=== PATIENT | male | born 1955 | race Caucasian/White ===

== ENCOUNTER 2020-12-26 19:53 | Inpatient (IN) | payer MEDICAID, MEDICARE ==
[~2020-12-26] VITALS: Ht 185.4 cm; Wt 89.5 kg
[~2020-12-26 19:53] MED LIST: ALBUAER3 IN; ALPR0.5T PO; ASPI-543 PO; ATEN-60; CYCL10TA6 PO; FLUO20CA19 PO; FLUT110A INH; IBUP800T27 PO; METO-158 PO; PROP60CA34 PO
[2020-12-26] MEDS ORDERED: ALBUTEROL SULF 2.5 MG/0.5ML(0.5%) NEB SOLN HHN STA (20:15)
[2020-12-26] MEDS ORDERED: methylPREDNISolone SOD SUCC 125 MG/2 ML VL IV ONE (20:15)
[2020-12-26] MEDS ORDERED: IPRATROPIUM BROM 0.5 MG/2.5ML INH SOL NEB ONE (20:15)
[2020-12-26] MEDS ORDERED: AZITHROMYCIN 500MG/ 250ML 250 ML IV ONE (20:15)
[2020-12-26 20:50] LABS: Basophils # (auto) 0 10 ^3/uL (0-0.2); Basophils % (auto) 0.4 % (0.0-2.0); Eosinophils # (auto) 0.2 10 ^3/uL (0-0.8); Eosinophils % (auto) 3.1 % (0.0-7.0); Hematocrit 32.2 % (41.0-53.0); Lymphocytes # (auto) 0.8 10 ^3/uL (0.4-5.4); Lymphocytes % (auto) 12.2 % (10.0-50.0); Mean Corpuscular Hemoglobin 31.2 pg (28.0-32.0); Mean Corpuscular Hgb Conc. 34.2 g/dL (32.0-36.0); Mean Corpuscular Volume 91.5 fL (80.0-100.0); Monocytes # (auto) 0.7 10 ^3/uL (0-1.3); Monocytes % (auto) 10.1 % (0.0-12.0); Neutrophils # (auto) 5.1 10 ^3/uL (1.6-8.6); Neutrophils % (auto) 74.2 % (37.0-80.0); Nucleated Red Blood Cells % 0.1 %; Red Blood Cells 3.51 10^6/uL (4.5-5.90); Red Cell Distribution Width 13.8 % (11.8-14.3); White Blood Cell 6.9 10^3/uL (4.4-10.8)
[2020-12-26 21:10] LABS: Albumin 2.8 g/dL (3.4-5.0); Anion Gap 9 (5-15); BUN/Creatinine Ratio 14.8; Blood Urea Nitrogen 12 mg/dL (7-18); Calcium 8.7 mg/dL (8.5-10.1); Carbon Dioxide 24 mmol/L (21-32); Chloride 104 mmol/L (98-107); GFR African American 123 mL/min; GFR Non-African American 102 mL/min; Glucose 95 mg/dL (74-106); Potassium 4.1 mmol/L (3.5-5.1); Sodium 137 mmol/L (136-145)
[2020-12-26 21:15] LABS: Alanine Aminotransferase 26 U/L (16-61); Alkaline Phosphatase 62 U/L (45-117); Aspartate Aminotransferase 25 U/L (15-37); Bilirubin, Total 0.4 mg/dL (0.2-1.0)
[2020-12-27] MEDS ORDERED: NITROGLYCERIN 0.4 MG SL TAB SL PRN (03:30)
[2020-12-27] MEDS ORDERED: ALBUMIN 25% 50 ML IV ONE (03:30)
[2020-12-27] MEDS ORDERED: ONDANSETRON HCL 4 MG/2 ML VIAL IV PRN (03:30)
[2020-12-27] MEDS ORDERED: MORPHINE SULFATE INJECTION 2 MG/ML SYRG IV PRN (03:30)
[2020-12-27] MEDS ORDERED: ACETAMINOPHEN 325 MG TAB PO PRN (03:30)
[2020-12-27 04:00] LABS: Basophils # (auto) 0 10 ^3/uL (0-0.2); Basophils % (auto) 0.2 % (0.0-2.0); Eosinophils # (auto) 0 10 ^3/uL (0-0.8); Eosinophils % (auto) 0.2 % (0.0-7.0); Hematocrit 33.3 % (41.0-53.0); Hemoglobin 11.5 g/dL (13.5-17.5); Lymphocytes # (auto) 0.4 10 ^3/uL (0.4-5.4); Lymphocytes % (auto) 6.1 % (10.0-50.0); Mean Corpuscular Hemoglobin 31.7 pg (28.0-32.0); Mean Corpuscular Hgb Conc. 34.4 g/dL (32.0-36.0); Mean Corpuscular Volume 92.1 fL (80.0-100.0); Monocytes # (auto) 0.1 10 ^3/uL (0-1.3); Monocytes % (auto) 1.1 % (0.0-12.0); Neutrophils # (auto) 6.6 10 ^3/uL (1.6-8.6); Neutrophils % (auto) 92.4 % (37.0-80.0); Red Blood Cells 3.62 10^6/uL (4.5-5.90); Red Cell Distribution Width 13.9 % (11.8-14.3); White Blood Cell 7.2 10^3/uL (4.4-10.8)
[2020-12-27 04:18] LABS: Albumin 2.9 g/dL (3.4-5.0); BUN/Creatinine Ratio 16.9; Potassium 4.4 mmol/L (3.5-5.1)
[2020-12-27 05:10] LABS: Bilirubin, Total 0.4 mg/dL (0.2-1.0); Total Protein 7.2 g/dL (6.4-8.2)
[2020-12-27] MEDS ORDERED: ALBUTEROL SULF HFA 90MCG INH 200DOSE IN SCH (06:00)
[2020-12-27] MEDS: SODIUM CHLOR 0.9% PF (SALINE LOCK) 10ML VIAL/SYR IV SCH ×3 (06:06→22:09)
[2020-12-27] MEDS: ZINC SULFATE 220mg CAP or TAB PO SCH (11:11)
[2020-12-27] MEDS: ASCORBIC ACID 500 MG TAB PO SCH ×2 (11:11→22:10)
[2020-12-27] MEDS: MULTIPLE VITAMIN TAB PO SCH (11:11)
[2020-12-27] MEDS: FAMOTIDINE (10MG/ML) 2ML VL IV SCH ×2 (11:11→22:09)
[2020-12-27] MEDS: AZITHROMYCIN 500MG/ 250ML 250 ML IV SCH (11:11)
[2020-12-27] MEDS: methylPREDNISolone SOD SUCC 40 MG/ML VL IV SCH ×2 (11:11→22:10)
[2020-12-27] MEDS: ENOXAPARIN SOD 40 MG/0.4 ML SYRINGE SC SCH (11:12)
[2020-12-27] MEDS ORDERED: NICOTINE 21MG/24 HR TOPICAL PATCH TD ONE (15:15)
[2020-12-27] MEDS: HYDROcodone-ACET 5/325MG TAB PO PRN (19:02)
[2020-12-27] MEDS: ALBUTEROL SULF 2.5 MG/0.5ML(0.5%) NEB SOLN NEB PRN (19:14)
[2020-12-27] MEDS: IPRATROPIUM BROM 0.5 MG/2.5ML INH SOL NEB PRN (19:14)
[2020-12-27] MEDS ORDERED: HYDROmorphone HCL 2 MG/ML VL IV ONE (20:30)
[2020-12-27] MEDS: LORazepam 2MG/ML-1ML VIAL IV ONE ×2 (20:37→21:56)
[2020-12-27] MEDS: METOPROLOL TARTRATE 25 MG TAB PO SCH (22:11)
[2020-12-28 04:42] LABS: Albumin 2.9 g/dL (3.4-5.0); Magnesium 2.3 mg/dL (1.6-2.6); Potassium 4.5 mmol/L (3.5-5.1)
[2020-12-28 04:45] LABS: BUN/Creatinine Ratio 26.3; Total Protein 7.1 g/dL (6.4-8.2)
[2020-12-28 04:46] LABS: Basophils # (auto) 0 10 ^3/uL (0-0.2); Basophils % (auto) 0.1 % (0.0-2.0); Eosinophils # (auto) 0 10 ^3/uL (0-0.8); Hematocrit 33.7 % (41.0-53.0); Hemoglobin 11.7 g/dL (13.5-17.5); Lymphocytes # (auto) 0.5 10 ^3/uL (0.4-5.4); Lymphocytes % (auto) 3.7 % (10.0-50.0); Mean Corpuscular Hemoglobin 31.9 pg (28.0-32.0); Mean Corpuscular Hgb Conc. 34.9 g/dL (32.0-36.0); Mean Corpuscular Volume 91.5 fL (80.0-100.0); Monocytes # (auto) 0.2 10 ^3/uL (0-1.3); Monocytes % (auto) 1.8 % (0.0-12.0); Neutrophils # (auto) 13.1 10 ^3/uL (1.6-8.6); Neutrophils % (auto) 94.4 % (37.0-80.0); Red Blood Cells 3.68 10^6/uL (4.5-5.90); Red Cell Distribution Width 13.9 % (11.8-14.3); White Blood Cell 13.9 10^3/uL (4.4-10.8)
[2020-12-28 04:47] LABS: Bilirubin, Total 0.3 mg/dL (0.2-1.0)
[2020-12-28 05:18] LABS: INR 1.18 (0.9-1.15)
[2020-12-28] MEDS: SODIUM CHLOR 0.9% PF (SALINE LOCK) 10ML VIAL/SYR IV SCH ×3 (06:14→21:17)
[2020-12-28] MEDS: FAMOTIDINE (10MG/ML) 2ML VL IV SCH ×2 (09:03→21:17)
[2020-12-28] MEDS: ENOXAPARIN SOD 40 MG/0.4 ML SYRINGE SC SCH (09:03)
[2020-12-28] MEDS: methylPREDNISolone SOD SUCC 40 MG/ML VL IV SCH ×2 (09:03→21:17)
[2020-12-28] MEDS: NICOTINE 21MG/24 HR TOPICAL PATCH TD SCH ×2 (09:04→09:15)
[2020-12-28] MEDS: METOPROLOL TARTRATE 25 MG TAB PO SCH ×2 (09:04→21:29)
[2020-12-28] MEDS: ZINC SULFATE 220mg CAP or TAB PO SCH (09:05)
[2020-12-28] MEDS: ASCORBIC ACID 500 MG TAB PO SCH ×2 (09:05→21:18)
[2020-12-28] MEDS: MULTIPLE VITAMIN TAB PO SCH (09:05)
[2020-12-28] MEDS: AZITHROMYCIN 500MG/ 250ML 250 ML IV SCH (09:16)
[2020-12-28] MEDS ORDERED: LORazepam 0.5 MG TAB ONE (15:52)
[2020-12-28] MEDS: HYDROcodone-ACET 5/325MG TAB PO PRN (19:04)
[2020-12-28] MEDS: LORazepam 0.5 MG TAB PO SCH (21:18)
[2020-12-28 22:00] VITALS: BP 113/69
[2020-12-29 05:00] VITALS: BP 114/78
[2020-12-29] MEDS: SODIUM CHLOR 0.9% PF (SALINE LOCK) 10ML VIAL/SYR IV SCH ×3 (05:13→21:09)
[2020-12-29] MEDS: LORazepam 0.5 MG TAB PO SCH (06:00)
[2020-12-29 08:00] VITALS: BP 134/69
[2020-12-29] MEDS: ENOXAPARIN SOD 40 MG/0.4 ML SYRINGE SC SCH (10:00)
[2020-12-29] MEDS: MULTIPLE VITAMIN TAB PO SCH (10:03)
[2020-12-29] MEDS: NICOTINE 21MG/24 HR TOPICAL PATCH TD SCH (10:03)
[2020-12-29] MEDS: ZINC SULFATE 220mg CAP or TAB PO SCH (10:03)
[2020-12-29] MEDS: ASCORBIC ACID 500 MG TAB PO SCH ×2 (10:04→21:10)
[2020-12-29] MEDS: METOPROLOL TARTRATE 25 MG TAB PO SCH ×2 (10:04→22:00)
[2020-12-29] MEDS: AZITHROMYCIN 500MG/ 250ML 250 ML IV SCH (10:04)
[2020-12-29] MEDS: methylPREDNISolone SOD SUCC 40 MG/ML VL IV SCH ×2 (10:06→21:09)
[2020-12-29] MEDS: FAMOTIDINE (10MG/ML) 2ML VL IV SCH ×2 (10:06→21:09)
[2020-12-29] MEDS ORDERED: MORPHINE SULFATE 4 MG/ML SYR/VIAL IV PRN (11:15)
[2020-12-29] MEDS: ALBUTEROL SULF 2.5 MG/0.5ML(0.5%) NEB SOLN NEB PRN (12:01)
[2020-12-29] MEDS: IPRATROPIUM BROM 0.5 MG/2.5ML INH SOL NEB PRN (12:01)
[2020-12-29] MEDS ORDERED: RIV20T PO (12:11)
[2020-12-29] MEDS ORDERED: METO-158 PO (12:11)
[2020-12-29] MEDS ORDERED: TAMS0.4C36 PO (12:11)
[2020-12-29] MEDS ORDERED: FOLI1TAB6 PO (12:11)
[2020-12-29] MEDS ORDERED: AMLO-489 PO (12:11)
[2020-12-29] MEDS ORDERED: METH2.5T PO (12:11)
[2020-12-29] MEDS ORDERED: DOCU100T15 PO (12:11)
[2020-12-29] MEDS ORDERED: MORP1TAB14 PO (12:11)
[2020-12-29] MEDS ORDERED: BUSP10TA90 PO (12:11)
[2020-12-29] MEDS ORDERED: OXYB5TAB61 PO (12:11)
[2020-12-29 13:00] VITALS: BP 110/69
[2020-12-29] MEDS: HYDROmorphone HCL 2 MG/ML VL IV PRN ×2 (15:40→23:55)
[2020-12-29 17:00] VITALS: BP 156/97
[2020-12-29] MEDS ORDERED: RIVAROXABAN 20 MG TAB PO SCH (18:00)
[2020-12-29 18:39] VITALS: BP 146/64
[2020-12-29 20:36] VITALS: BP 139/77
[2020-12-29] MEDS: HYDROcodone-ACET 5/325MG TAB PO PRN (20:58)
[2020-12-29] MEDS: LORazepam 0.5 MG TAB PO PRN (20:58)
[2020-12-29] MEDS: FLUoxetine HCL 20 MG CAP PO SCH (21:09)
[2020-12-30] MEDS: LORazepam 0.5 MG TAB PO PRN ×2 (03:46→21:20)
[2020-12-30] MEDS: SODIUM CHLOR 0.9% PF (SALINE LOCK) 10ML VIAL/SYR IV SCH ×3 (04:45→21:21)
[2020-12-30 05:00] VITALS: BP 140/89
[2020-12-30] MEDS: IPRATROPIUM BROM 0.5 MG/2.5ML INH SOL NEB PRN (07:22)
[2020-12-30] MEDS: ALBUTEROL SULF 2.5 MG/0.5ML(0.5%) NEB SOLN NEB PRN (07:22)
[2020-12-30 09:00] VITALS: BP 134/86
[2020-12-30] MEDS: AZITHROMYCIN 500MG/ 250ML 250 ML IV SCH (09:31)
[2020-12-30] MEDS: methylPREDNISolone SOD SUCC 40 MG/ML VL IV SCH ×2 (09:32→21:20)
[2020-12-30] MEDS: HYDROmorphone HCL 2 MG/ML VL IV PRN (09:34)
[2020-12-30] MEDS: FOLIC ACID 1 MG TAB PO SCH (09:38)
[2020-12-30] MEDS: ASCORBIC ACID 500 MG TAB PO SCH ×2 (09:39→21:20)
[2020-12-30] MEDS: METOPROLOL TARTRATE 25 MG TAB PO SCH ×2 (09:39→21:22)
[2020-12-30] MEDS: amLODIPine BESYLATE 5 MG TAB PO SCH (09:39)
[2020-12-30] MEDS: ZINC SULFATE 220mg CAP or TAB PO SCH (09:40)
[2020-12-30] MEDS: ENOXAPARIN SOD 40 MG/0.4 ML SYRINGE SC SCH (09:40)
[2020-12-30] MEDS: MULTIPLE VITAMIN TAB PO SCH (09:40)
[2020-12-30] MEDS: OXYBUTYNIN CHL 5 MG TAB PO SCH (09:40)
[2020-12-30] MEDS: TAMSULOSIN HYDROCHLORIDE 0.4 MG CAP PO SCH (09:40)
[2020-12-30] MEDS: NICOTINE 21MG/24 HR TOPICAL PATCH TD SCH (09:40)
[2020-12-30] MEDS: FLUoxetine HCL 20 MG CAP PO SCH (10:00)
[2020-12-30] MEDS: FAMOTIDINE (10MG/ML) 2ML VL IV SCH ×2 (10:00→21:20)
[2020-12-30 12:09] LABS: Hepatitis B Surface Antibody Positive
[2020-12-30 12:36] LABS: Hepatitis A Total Antibody Positive
[2020-12-30 13:00] VITALS: BP 131/82
[2020-12-30 13:44] LABS: Hepatitis B Surface Antigen Negative (Negative)
[2020-12-30 13:48] LABS: Hepatitis B Core Total AB Positive; Hepatitis C Antibody Positive (Negative)
[2020-12-30] MEDS ORDERED: cefTRIAXone 1GM/50ML D5W 50 ML IV ONE (15:30)
[2020-12-30] MEDS: HYDROcodone-ACET 5/325MG TAB PO PRN ×2 (16:45→21:21)
[2020-12-30 17:00] VITALS: BP 135/81
[2020-12-30] MEDS: RIVAROXABAN 20 MG TAB PO SCH (18:06)
[2020-12-30 19:34] LABS: Amphetamine Screen, Urine NEGATIVE (NEGATIVE); Barbiturate Scree,Urine NEGATIVE (NEGATIVE); Benzodiazephine Screen, Urine NEGATIVE (NEGATIVE); Cannabinoid Screen, Urine POSITIVE (NEGATIVE); Cocaine Screen, Urine NEGATIVE (NEGATIVE); Phencyclidine Screen, Urine NEGATIVE (NEGATIVE)
[2020-12-30 19:41] LABS: Opiate Scree,Urine NEGATIVE (NEGATIVE)
[2020-12-30] MEDS: DOCUSATE SOD 100 MG CAP PO PRN (21:22)
[2020-12-30 22:00] VITALS: BP 136/90
[2020-12-31 05:00] VITALS: BP 136/95
[2020-12-31] MEDS: SODIUM CHLOR 0.9% PF (SALINE LOCK) 10ML VIAL/SYR IV SCH ×3 (05:06→21:24)
[2020-12-31 05:42] LABS: Basophils # (auto) 0 10 ^3/uL (0-0.2); Basophils % (auto) 0.2 % (0.0-2.0); Eosinophils # (auto) 0 10 ^3/uL (0-0.8); Hematocrit 33.6 % (41.0-53.0); Lymphocytes # (auto) 0.7 10 ^3/uL (0.4-5.4); Lymphocytes % (auto) 6.8 % (10.0-50.0); Mean Corpuscular Hemoglobin 31.9 pg (28.0-32.0); Mean Corpuscular Hgb Conc. 35.8 g/dL (32.0-36.0); Monocytes # (auto) 0.8 10 ^3/uL (0-1.3); Monocytes % (auto) 7.4 % (0.0-12.0); Neutrophils # (auto) 8.9 10 ^3/uL (1.6-8.6); Neutrophils % (auto) 85.6 % (37.0-80.0); Red Blood Cells 3.78 10^6/uL (4.5-5.90); Red Cell Distribution Width 13.4 % (11.8-14.3); White Blood Cell 10.4 10^3/uL (4.4-10.8)
[2020-12-31 06:04] LABS: Calcium 8.7 mg/dL (8.5-10.1)
[2020-12-31 08:58] VITALS: BP 127/91
[2020-12-31] MEDS: FAMOTIDINE (10MG/ML) 2ML VL IV SCH ×2 (09:40→21:29)
[2020-12-31] MEDS: methylPREDNISolone SOD SUCC 40 MG/ML VL IV SCH ×2 (09:40→21:29)
[2020-12-31] MEDS: cefTRIAXone 1GM/50ML D5W 50 ML IV SCH (09:40)
[2020-12-31] MEDS: AZITHROMYCIN 500MG/ 250ML 250 ML IV SCH (09:41)
[2020-12-31] MEDS: ZINC SULFATE 220mg CAP or TAB PO SCH (09:42)
[2020-12-31] MEDS: FOLIC ACID 1 MG TAB PO SCH (09:42)
[2020-12-31] MEDS: MULTIPLE VITAMIN TAB PO SCH (09:43)
[2020-12-31] MEDS: amLODIPine BESYLATE 5 MG TAB PO SCH (09:43)
[2020-12-31] MEDS: OXYBUTYNIN CHL 5 MG TAB PO SCH (09:43)
[2020-12-31] MEDS: TAMSULOSIN HYDROCHLORIDE 0.4 MG CAP PO SCH (09:43)
[2020-12-31] MEDS: METOPROLOL TARTRATE 25 MG TAB PO SCH ×2 (09:44→21:46)
[2020-12-31] MEDS: ASCORBIC ACID 500 MG TAB PO SCH ×2 (09:45→21:29)
[2020-12-31] MEDS: FLUoxetine HCL 20 MG CAP PO SCH (09:45)
[2020-12-31] MEDS: NICOTINE 21MG/24 HR TOPICAL PATCH TD SCH (09:46)
[2020-12-31] MEDS: DOCUSATE SOD 100 MG CAP PO PRN (09:47)
[2020-12-31] MEDS: ALBUTEROL SULF 2.5 MG/0.5ML(0.5%) NEB SOLN NEB PRN (11:16)
[2020-12-31] MEDS: IPRATROPIUM BROM 0.5 MG/2.5ML INH SOL NEB PRN (11:16)
[2020-12-31] MEDS: LORazepam 0.5 MG TAB PO PRN ×2 (11:35→23:45)
[2020-12-31] MEDS ORDERED: METHOTREXATE 2.5 MG TAB PO SCH (12:30)
[2020-12-31 12:45] VITALS: BP 136/87
[2020-12-31] MEDS: HYDROcodone-ACET 5/325MG TAB PO PRN (13:28)
[2020-12-31] MEDS: MORPHINE SULFATE INJECTION 2 MG/ML SYRG IV PRN ×2 (15:32→21:51)
[2020-12-31 16:20] VITALS: BP 126/79
[2020-12-31] MEDS: busPIRone HCL 10 MG TAB PO PRN (17:20)
[2020-12-31] MEDS: RIVAROXABAN 20 MG TAB PO SCH (17:20)
[2020-12-31 22:00] VITALS: BP 140/85
[2021-01-01] MEDS: HYDROcodone-ACET 5/325MG TAB PO PRN (00:45)
[2021-01-01] MEDS: busPIRone HCL 10 MG TAB PO PRN (00:46)
[2021-01-01] MEDS: MORPHINE SULFATE INJECTION 2 MG/ML SYRG IV PRN ×2 (02:57→09:17)
[2021-01-01 05:00] VITALS: BP 132/82
[2021-01-01] MEDS: SODIUM CHLOR 0.9% PF (SALINE LOCK) 10ML VIAL/SYR IV SCH ×2 (05:38→13:56)
[2021-01-01 05:57] LABS: Potassium 4.4 mmol/L (3.5-5.1)
[2021-01-01 05:59] LABS: BUN/Creatinine Ratio 30.1
[2021-01-01 08:46] VITALS: BP 131/87
[2021-01-01] MEDS: cefTRIAXone 1GM/50ML D5W 50 ML IV SCH (09:17)
[2021-01-01] MEDS: FAMOTIDINE (10MG/ML) 2ML VL IV SCH (09:28)
[2021-01-01] MEDS: AZITHROMYCIN 500MG/ 250ML 250 ML IV SCH (09:29)
[2021-01-01] MEDS: FOLIC ACID 1 MG TAB PO SCH (09:29)
[2021-01-01] MEDS: methylPREDNISolone SOD SUCC 40 MG/ML VL IV SCH (09:29)
[2021-01-01] MEDS: OXYBUTYNIN CHL 5 MG TAB PO SCH (09:30)
[2021-01-01] MEDS: TAMSULOSIN HYDROCHLORIDE 0.4 MG CAP PO SCH (09:30)
[2021-01-01] MEDS: ZINC SULFATE 220mg CAP or TAB PO SCH (09:30)
[2021-01-01] MEDS: METOPROLOL TARTRATE 25 MG TAB PO SCH (09:32)
[2021-01-01] MEDS: MULTIPLE VITAMIN TAB PO SCH (09:32)
[2021-01-01] MEDS: amLODIPine BESYLATE 5 MG TAB PO SCH (09:33)
[2021-01-01] MEDS: ASCORBIC ACID 500 MG TAB PO SCH (09:33)
[2021-01-01] MEDS: FLUoxetine HCL 20 MG CAP PO SCH (09:33)
[2021-01-01] MEDS: NICOTINE 21MG/24 HR TOPICAL PATCH TD SCH (09:34)
[2021-01-01] MEDS: DOCUSATE SOD 100 MG CAP PO PRN (09:35)
[2021-01-01 13:00] VITALS: BP 133/89
[2021-01-01] MEDS ORDERED: LEVO750T8 PO (15:50)
[2021-01-01] MEDS ORDERED: NIC21P TOP (15:50)
[2021-01-01] MEDS ORDERED: PRED20TA2 PO (15:50)
[2021-01-01] MEDS ORDERED: MET25T PO (15:52)
[2021-01-01 16:26] VITALS: BP 133/89
[2021-01-01 17:00] VITALS: BP 112/75
== END 2021-01-01 17:35 | disposition home health service (06) | DRG 190 ==
LOC: ER 19:53 → EDBD 19:53 → TELE 12-27 03:17 → TELE-WESTW 12-28 16:57
PROVIDERS: ADMIT Nurse Practitioner Family; ATTEND Internal Medicine
DX: J44.1 Chronic obstructive pulmonary disease with (acute) exacerbation (principal); J12.9 Viral pneumonia, unspecified; J15.9 Unspecified bacterial pneumonia; E11.9 Type 2 diabetes mellitus without complications; I10 Essential (primary) hypertension; I48.0 Paroxysmal atrial fibrillation; T38.0X5A Adverse effect of glucocorticoids and synthetic analogues, initial encounter; F10.10 Alcohol abuse, uncomplicated; F12.90 Cannabis use, unspecified, uncomplicated; F17.210 Nicotine dependence, cigarettes, uncomplicated; F41.9 Anxiety disorder, unspecified; J44.0 Chronic obstructive pulmonary disease with (acute) lower respiratory infection; Z20.822 Contact with and (suspected) exposure to COVID-19; Z79.01 Long term (current) use of anticoagulants; Z81.8 Family history of other mental and behavioral disorders; Z82.49 Family history of ischemic heart disease and other diseases of the circulatory system; Y92.89 Other specified places as the place of occurrence of the external cause; Z83.3 Family history of diabetes mellitus; Z85.72 Personal history of non-Hodgkin lymphomas; Z86.73 Personal history of transient ischemic attack (TIA), and cerebral infarction without residual deficits; Z92.21 Personal history of antineoplastic chemotherapy; Z92.3 Personal history of irradiation; Z88.0 Allergy status to penicillin; Z71.6 Tobacco abuse counseling
CPT/HCPCS: 36415; 71045; 71250; 76705; 80048; 80053; 80061; 80307; 82306; 82542; 83036; 83605; 83615; 83735; 83880; 84443; 84484; 85025; 85610; 86704; 86706; 86708; 86803; 87040; 87278; 87340; 87426; 93306; 94640; 96365; 96366; 96367; 96372; 96375; G0378; J0696; J2405; J3490

== ENCOUNTER 2021-01-12 10:03 | Emergency (ER) | payer MEDICARE ==
[~2021-01-12] VITALS: Ht 185.4 cm; Wt 90.7 kg
[~2021-01-12 10:03] MED LIST changes: -ALPR0.5T PO; +AMLO-489 PO; -ASPI-543 PO; -ATEN-60; +BUSP10TA90 PO; -CYCL10TA6 PO; +DOCU100T15 PO; +FOLI1TAB6 PO; -IBUP800T27 PO; +LEVO750T8 PO; +MET25T PO; +METH2.5T PO; -METO-158 PO; +MORP1TAB14 PO; +NIC21P TOP; +OXYB5TAB61 PO; +PRED20TA2 PO; -PROP60CA34 PO; +RIV20T PO; +TAMS0.4C36 PO
[2021-01-12 10:08] VITALS: BP 148/87
[2021-01-12] MEDS ORDERED: SODIUM CHLORIDE 0.9% 1,000 ML IVB ONE (10:15)
[2021-01-12] MEDS ORDERED: KETOROLAC TROMETH 30 MG/ML 1ML VIAL IV ONE (10:30)
[2021-01-12 10:50] LABS: Urine Bacteria NONE SEEN /hpf (None Seen); Urine Blood Negative /uL (Negative); Urine Specific Gravity 1.023 (1.001-1.035); Urine WBC <1 /hpf (0 - 3)
[2021-01-12 10:57] LABS: Basophils # (auto) 0.1 10 ^3/uL (0-0.2); Basophils % (auto) 0.6 % (0.0-2.0); Eosinophils # (auto) 0.2 10 ^3/uL (0-0.8); Eosinophils % (auto) 1.8 % (0.0-7.0); Hematocrit 35.2 % (41.0-53.0); Hemoglobin 12.1 g/dL (13.5-17.5); Lymphocytes # (auto) 1.8 10 ^3/uL (0.4-5.4); Lymphocytes % (auto) 17.3 % (10.0-50.0); Mean Corpuscular Hemoglobin 31.9 pg (28.0-32.0); Mean Corpuscular Hgb Conc. 34.3 g/dL (32.0-36.0); Monocytes # (auto) 0.9 10 ^3/uL (0-1.3); Monocytes % (auto) 8.4 % (0.0-12.0); Neutrophils # (auto) 7.4 10 ^3/uL (1.6-8.6); Neutrophils % (auto) 71.9 % (37.0-80.0); Nucleated Red Blood Cells % 0.1 %; Red Blood Cells 3.79 10^6/uL (4.5-5.90); Red Cell Distribution Width 15.1 % (11.8-14.3); White Blood Cell 10.2 10^3/uL (4.4-10.8)
[2021-01-12 11:08] LABS: Albumin 3.6 g/dL (3.4-5.0); Anion Gap 6 (5-15); Blood Urea Nitrogen 15 mg/dL (7-18); Calcium 8.7 mg/dL (8.5-10.1); Carbon Dioxide 29 mmol/L (21-32); Chloride 102 mmol/L (98-107); Glucose 98 mg/dL (74-106); Lipase 66 U/L (73-393); Potassium 4.4 mmol/L (3.5-5.1); Sodium 137 mmol/L (136-145)
[2021-01-12 11:14] LABS: Alanine Aminotransferase 85 U/L (16-61); Alkaline Phosphatase 69 U/L (45-117); Aspartate Aminotransferase 46 U/L (15-37); BUN/Creatinine Ratio 16.1; Bilirubin, Total 0.4 mg/dL (0.2-1.0); GFR African American 105 mL/min; GFR Non-African American 87 mL/min; Total Protein 6.9 g/dL (6.4-8.2)
== END 2021-01-12 14:40 | disposition home or self-care (01) ==
LOC: ER 10:03
DX: R10.32 Left lower quadrant pain (principal); N20.0 Calculus of kidney; J44.9 Chronic obstructive pulmonary disease, unspecified; I10 Essential (primary) hypertension; I48.91 Unspecified atrial fibrillation; F41.9 Anxiety disorder, unspecified; E11.9 Type 2 diabetes mellitus without complications; F17.210 Nicotine dependence, cigarettes, uncomplicated; Z86.73 Personal history of transient ischemic attack (TIA), and cerebral infarction without residual deficits; Z88.0 Allergy status to penicillin; Z79.899 Other long term (current) drug therapy
CPT/HCPCS: 36415; 74176; 80053; 81001; 83690; 84484; 85025; 96361; 96374; 99284; J1885; J7030

== ENCOUNTER → 2021-02-04 | Outpatient (CLI) | payer MEDICARE | END | disposition home or self-care (01) | LOC: LAB 09:39 | PROVIDERS: ATTEND Internal Medicine Pulmonary Disease | DX: Z01.812 Encounter for preprocedural laboratory examination (principal); Z20.828 Contact with and (suspected) exposure to other viral communicable diseases | CPT/HCPCS: 36415; 87426 ==

== ENCOUNTER 2021-02-13 13:41 | Inpatient (IN) | payer OTHER, MEDICAID ==
[~2021-02-13] VITALS: Ht 185.4 cm; Wt 94.0 kg
[2021-02-13] MEDS ORDERED: ONDANSETRON HCL 4 MG/2 ML VIAL IV ONE (14:00)
[2021-02-13] MEDS ORDERED: HYDROcodone-ACET 10/325MG TAB PO ONE (14:15)
[2021-02-13 14:30] LABS: Basophils # (auto) 0.1 10 ^3/uL (0-0.2); Basophils % (auto) 1.3 % (0.0-2.0); Eosinophils # (auto) 0.1 10 ^3/uL (0-0.8); Hematocrit 34.7 % (41.0-53.0); Hemoglobin 11.5 g/dL (13.5-17.5); Lymphocytes # (auto) 1.4 10 ^3/uL (0.4-5.4); Lymphocytes % (auto) 12.4 % (10.0-50.0); Mean Corpuscular Hemoglobin 29.6 pg (28.0-32.0); Mean Corpuscular Hgb Conc. 33.1 g/dL (32.0-36.0); Mean Corpuscular Volume 89.5 fL (80.0-100.0); Monocytes % (auto) 9.6 % (0.0-12.0); Neutrophils # (auto) 8.2 10 ^3/uL (1.6-8.6); Neutrophils % (auto) 75.7 % (37.0-80.0); Nucleated Red Blood Cells % 0.1 %; Red Blood Cells 3.88 10^6/uL (4.5-5.90); Red Cell Distribution Width 15.4 % (11.8-14.3); White Blood Cell 10.9 10^3/uL (4.4-10.8)
[2021-02-13] MEDS ORDERED: IOHEXOL 350 MG/ML 100ML IJ ONE (14:33)
[2021-02-13 14:45] LABS: INR 1.12 (0.9-1.15); Partial Thromboplastin Time 29.7 sec (23.6-33.0)
[2021-02-13 15:52] LABS: Albumin 3.5 g/dL (3.4-5.0); Calcium 8.8 mg/dL (8.5-10.1); Potassium 4.2 mmol/L (3.5-5.1)
[2021-02-13 15:55] LABS: BUN/Creatinine Ratio 15.3; Bilirubin, Total 0.4 mg/dL (0.2-1.0); Total Protein 7.6 g/dL (6.4-8.2)
[2021-02-13] MEDS ORDERED: HYDROmorphone HCL 2 MG/ML VL IV ONE (19:15)
[2021-02-13] MEDS ORDERED: DEXTROSE (50%) 50ML SYRG IV PRN (22:15)
[2021-02-13] MEDS ORDERED: DOCUSATE SOD 100 MG CAP PO PRN (22:15)
[2021-02-13] MEDS ORDERED: ONDANSETRON HCL 4 MG/2 ML VIAL IV PRN (22:15)
[2021-02-13] MEDS ORDERED: MORPHINE SULFATE INJECTION 2 MG/ML SYRG IV PRN (22:15)
[2021-02-13] MEDS ORDERED: SODIUM CHLORIDE 0.9% 1,000 ML IV SCH (22:15)
[2021-02-13] MEDS ORDERED: ACETAMINOPHEN 325 MG TAB PO PRN (22:15)
[2021-02-13] MEDS ORDERED: NITROGLYCERIN 0.4 MG SL TAB SL PRN (22:15)
[2021-02-14] MEDS: MORPHINE SULFATE 4 MG/ML SYR/VIAL IV PRN ×2 (00:06→18:20)
[2021-02-14 01:00] VITALS: BP 132/76
[2021-02-14] MEDS: HYDROcodone-ACET 5/325MG TAB PO PRN ×2 (04:10→12:30)
[2021-02-14 05:00] VITALS: BP 101/65
[2021-02-14] MEDS ORDERED: ALBUTEROL SULF HFA 90MCG INH 200DOSE IN SCH (06:00)
[2021-02-14 06:33] LABS: Basophils # (auto) 0.1 10 ^3/uL (0-0.2); Basophils % (auto) 0.4 % (0.0-2.0); Eosinophils # (auto) 0 10 ^3/uL (0-0.8); Eosinophils % (auto) 0.3 % (0.0-7.0); Hematocrit 28.6 % (41.0-53.0); Hemoglobin 9.8 g/dL (13.5-17.5); Lymphocytes % (auto) 8.2 % (10.0-50.0); Mean Corpuscular Hemoglobin 30.3 pg (28.0-32.0); Mean Corpuscular Hgb Conc. 34.2 g/dL (32.0-36.0); Mean Corpuscular Volume 88.5 fL (80.0-100.0); Monocytes # (auto) 1.3 10 ^3/uL (0-1.3); Monocytes % (auto) 10.4 % (0.0-12.0); Neutrophils # (auto) 10.1 10 ^3/uL (1.6-8.6); Neutrophils % (auto) 80.7 % (37.0-80.0); Red Blood Cells 3.23 10^6/uL (4.5-5.90); White Blood Cell 12.5 10^3/uL (4.4-10.8)
[2021-02-14 06:35] LABS: Potassium 3.9 mmol/L (3.5-5.1)
[2021-02-14 06:55] LABS: Albumin 2.8 g/dL (3.4-5.0); BUN/Creatinine Ratio 14.7; Bilirubin, Total 0.6 mg/dL (0.2-1.0); Calcium 8.1 mg/dL (8.5-10.1); Total Protein 6.3 g/dL (6.4-8.2)
[2021-02-14 07:00] LABS: Cholesterol 135 mg/dL (< 200)
[2021-02-14] MEDS: InsuLIN REG 1unit/0.01ml Soln (100units/ml) SC SCH ×4 (07:00→22:03)
[2021-02-14 07:02] LABS: HDL Cholesterol 59 mg/dL (40-59); LDL Cholesterol 72 mg/dL (< 100); Triglycerides 58 mg/dL (< 150)
[2021-02-14] MEDS: ACCU-CHEK COMFORT CURVE STRIP VI SCH ×4 (07:06→22:01)
[2021-02-14 09:00] VITALS: BP 117/75
[2021-02-14] MEDS: ZINC SULFATE 220mg CAP or TAB PO SCH (09:26)
[2021-02-14] MEDS: methylPREDNISolone SOD SUCC 40 MG/ML VL IV SCH ×2 (09:26→22:00)
[2021-02-14] MEDS: MULTIPLE VITAMIN TAB PO SCH (09:26)
[2021-02-14] MEDS: ASPirin 81 mg TAB PO SCH (09:26)
[2021-02-14] MEDS: METOPROLOL TARTRATE 25 MG TAB PO SCH ×2 (09:27→22:00)
[2021-02-14] MEDS: ASCORBIC ACID 500 MG TAB PO SCH ×2 (09:27→22:01)
[2021-02-14] MEDS: FAMOTIDINE (10MG/ML) 2ML VL IV SCH ×2 (09:28→22:01)
[2021-02-14] MEDS ORDERED: AZITHROMYCIN 500MG/ 250ML 250 ML IV ONE (12:00)
[2021-02-14 13:00] VITALS: BP 121/79
[2021-02-14 17:00] VITALS: BP 124/72
[2021-02-14 22:00] VITALS: BP 103/66
[2021-02-14] MEDS: ATORVASTATIN 20 MG TAB PO SCH (22:00)
[2021-02-14] MEDS: MORPHINE SULF 30 mg ER tab PO SCH (22:01)
[2021-02-15 05:00] VITALS: BP 123/79
[2021-02-15] MEDS: InsuLIN REG 1unit/0.01ml Soln (100units/ml) SC SCH ×4 (06:28→21:32)
[2021-02-15] MEDS: ACCU-CHEK COMFORT CURVE STRIP VI SCH ×4 (06:38→21:32)
[2021-02-15 09:00] VITALS: BP_SYST 115; BP_SYST 153; BP_DIAS 79; BP_DIAS 90
[2021-02-15] MEDS: ASCORBIC ACID 500 MG TAB PO SCH ×2 (09:37→21:31)
[2021-02-15] MEDS: METOPROLOL TARTRATE 25 MG TAB PO SCH ×2 (09:38→21:31)
[2021-02-15] MEDS: ZINC SULFATE 220mg CAP or TAB PO SCH (09:38)
[2021-02-15] MEDS: MULTIPLE VITAMIN TAB PO SCH (09:38)
[2021-02-15] MEDS: methylPREDNISolone SOD SUCC 40 MG/ML VL IV SCH ×2 (09:40→21:28)
[2021-02-15] MEDS: FAMOTIDINE (10MG/ML) 2ML VL IV SCH ×2 (09:40→21:28)
[2021-02-15] MEDS: AZITHROMYCIN 500MG/ 250ML 250 ML IV SCH (09:40)
[2021-02-15] MEDS: MORPHINE SULF 30 mg ER tab PO SCH ×2 (09:43→21:31)
[2021-02-15] MEDS: ASPirin 81 mg TAB PO SCH (09:43)
[2021-02-15] MEDS: IPRATROPIUM BROM 0.5 MG/2.5ML INH SOL NEB PRN (11:47)
[2021-02-15] MEDS: ALBUTEROL SULF 2.5 MG/0.5ML(0.5%) NEB SOLN NEB PRN (11:47)
[2021-02-15 13:00] VITALS: BP 116/72
[2021-02-15 13:26] VITALS: BP 115/79
[2021-02-15 17:00] VITALS: BP 128/71
[2021-02-15] MEDS: MORPHINE SULFATE 4 MG/ML SYR/VIAL IV PRN (17:37)
[2021-02-15] MEDS: ATORVASTATIN 20 MG TAB PO SCH (21:29)
[2021-02-15 22:10] VITALS: BP 123/77
[2021-02-16 04:53] VITALS: BP 124/83
[2021-02-16] MEDS: ACCU-CHEK COMFORT CURVE STRIP VI SCH ×4 (06:12→21:27)
[2021-02-16] MEDS: InsuLIN REG 1unit/0.01ml Soln (100units/ml) SC SCH ×4 (06:13→21:35)
[2021-02-16 08:15] VITALS: BP 125/83
[2021-02-16 09:00] VITALS: BP 125/83
[2021-02-16] MEDS: methylPREDNISolone SOD SUCC 40 MG/ML VL IV SCH ×2 (09:33→21:43)
[2021-02-16] MEDS: FAMOTIDINE (10MG/ML) 2ML VL IV SCH ×2 (09:33→21:44)
[2021-02-16] MEDS: ZINC SULFATE 220mg CAP or TAB PO SCH (09:34)
[2021-02-16] MEDS: AZITHROMYCIN 500MG/ 250ML 250 ML IV SCH (09:34)
[2021-02-16] MEDS: ASPirin 81 mg TAB PO SCH (09:34)
[2021-02-16] MEDS: MORPHINE SULF 30 mg ER tab PO SCH ×2 (09:45→21:42)
[2021-02-16] MEDS: MULTIPLE VITAMIN TAB PO SCH (09:45)
[2021-02-16] MEDS: ASCORBIC ACID 500 MG TAB PO SCH ×2 (09:45→21:40)
[2021-02-16] MEDS: METOPROLOL TARTRATE 25 MG TAB PO SCH ×2 (09:46→21:40)
[2021-02-16] MEDS: ALBUTEROL SULF 2.5 MG/0.5ML(0.5%) NEB SOLN NEB PRN (11:17)
[2021-02-16] MEDS: IPRATROPIUM BROM 0.5 MG/2.5ML INH SOL NEB PRN (11:17)
[2021-02-16 12:00] VITALS: BP 134/76
[2021-02-16 16:00] VITALS: BP 130/81
[2021-02-16] MEDS: ATORVASTATIN 20 MG TAB PO SCH (21:43)
[2021-02-16 22:00] VITALS: BP 129/74
[2021-02-17 05:00] VITALS: BP 132/94
[2021-02-17] MEDS: ACCU-CHEK COMFORT CURVE STRIP VI SCH ×3 (05:24→17:29)
[2021-02-17] MEDS: InsuLIN REG 1unit/0.01ml Soln (100units/ml) SC SCH ×3 (05:36→17:00)
[2021-02-17] MEDS: ALBUTEROL SULF 2.5 MG/0.5ML(0.5%) NEB SOLN NEB PRN (07:13)
[2021-02-17] MEDS: IPRATROPIUM BROM 0.5 MG/2.5ML INH SOL NEB PRN (07:13)
[2021-02-17 08:00] VITALS: BP 135/78
[2021-02-17] MEDS: AZITHROMYCIN 500MG/ 250ML 250 ML IV SCH (09:18)
[2021-02-17] MEDS: FAMOTIDINE (10MG/ML) 2ML VL IV SCH (09:18)
[2021-02-17] MEDS: methylPREDNISolone SOD SUCC 40 MG/ML VL IV SCH (09:18)
[2021-02-17] MEDS: MULTIPLE VITAMIN TAB PO SCH (09:19)
[2021-02-17] MEDS: ZINC SULFATE 220mg CAP or TAB PO SCH (09:19)
[2021-02-17] MEDS: ASPirin 81 mg TAB PO SCH (09:19)
[2021-02-17] MEDS: ASCORBIC ACID 500 MG TAB PO SCH (09:20)
[2021-02-17] MEDS: METOPROLOL TARTRATE 25 MG TAB PO SCH (09:20)
[2021-02-17] MEDS: MORPHINE SULF 30 mg ER tab PO SCH (09:20)
[2021-02-17 12:00] VITALS: BP 140/93
[2021-02-17 15:47] LABS: Urine Bacteria NONE SEEN /hpf (None Seen); Urine Blood Negative /uL (Negative); Urine Specific Gravity 1.023 (1.001-1.035); Urine WBC <1 /hpf (0 - 3)
[2021-02-17 16:00] VITALS: BP 142/85
[2021-02-17 16:43] VITALS: BP 142/85
== END 2021-02-17 18:10 | DRG 191 ==
LOC: ER 13:41 → TELE 22:03 → TELE-WESTW 02-14 01:04
PROVIDERS: ADMIT Nurse Practitioner Family; ATTEND Internal Medicine Geriatric Medicine
DX: J44.1 Chronic obstructive pulmonary disease with (acute) exacerbation (principal); E87.1 Hypo-osmolality and hyponatremia; C85.90 Non-Hodgkin lymphoma, unspecified, unspecified site; F41.9 Anxiety disorder, unspecified; I48.91 Unspecified atrial fibrillation; Z20.822 Contact with and (suspected) exposure to COVID-19; E11.9 Type 2 diabetes mellitus without complications; F12.90 Cannabis use, unspecified, uncomplicated; F17.210 Nicotine dependence, cigarettes, uncomplicated; I10 Essential (primary) hypertension; M19.90 Unspecified osteoarthritis, unspecified site; Z81.8 Family history of other mental and behavioral disorders; Z82.49 Family history of ischemic heart disease and other diseases of the circulatory system; Z83.3 Family history of diabetes mellitus; Z86.73 Personal history of transient ischemic attack (TIA), and cerebral infarction without residual deficits; Z86.718 Personal history of other venous thrombosis and embolism; Z86.711 Personal history of pulmonary embolism; Z88.0 Allergy status to penicillin
CPT/HCPCS: 36415; 71045; 71260; 73562; 73721; 74177; 80053; 80061; 81001; 82962; 83036; 83880; 84153; 84443; 84484; 85025; 85610; 85730; 87426; 93005; 94640; 96361; 96374; 96375; 97116; 97163; 97530; G0378; J1815; J2405; J3490